=== PATIENT | male | born 1950 | race Caucasian/White ===

== ENCOUNTER 2016-08-23 03:58 | Emergency (ER) | payer MEDICARE, OTHER ==
[~2016-08-23 03:58] MED LIST: CEFDINIR300 MG PO; COZAAR50 MG PO; LIPITOR20 MG PO; LOPRESSOR50 MG PO; PRILOSEC20 MG PO; XARELTO20 MG PO; ZITHROMAX500 MG PO
== END 2016-08-23 06:17 | disposition home or self-care (01) ==
LOC: FER 03:58
DX: S83.511A Sprain of anterior cruciate ligament of right knee, initial encounter (principal); I10 Essential (primary) hypertension; I48.91 Unspecified atrial fibrillation; Z79.01 Long term (current) use of anticoagulants; X50.1XXA Overexertion from prolonged static or awkward postures, initial encounter; Y92.009 Unspecified place in unspecified non-institutional (private) residence as the place of occurrence of the external cause
CPT/HCPCS: 73564; J1030; J1170